=== PATIENT | female | born 1975 | race Caucasian/White ===

== ENCOUNTER 2024-12-16 08:50 | Emergency (ER) | payer BC ==
[~2024-12-16] VITALS: Ht 160 cm; Wt 53.5 kg
[2024-12-16 09:06] VITALS: BP 135/85; PULSE 82; RESP 16; O2SAT 100
--- NOTE | 2024-12-16 09:42 | Physician Documentation ---
History of Present Illness ~ Chief Complaint: Eye Pain Stated Complaint: EYE INFECTION Time Seen by MD: 09:40 HPI 49-year-old female, history of rheumatoid disease on immunocompromising medication, who presents with a left eyelid redness and swelling She tells me that she was wearing eye makeup 3 days ago and her upper eyelid appeared irritated. She woke up with a red swollen lump on her left upper eyelid. She went to her primary clinic and was told that she probably had cellulitis, and was given erythromycin eye drops. She was told specifically that this was not a stye. She was told to follow up with her commercial cleaner. She called her commercial cleaner this morning who told her that if she had cellulitis she needed to go to the ER to have oral antibiotics. She denies any fevers. No redness or swelling around her eye. No change to her vision or to the appearance of her eye. No other acute concerns. Medication Reconciliation Allergies: Coded Allergies: No Known Allergies (Unverified , 12/16/24) Scheduled Amox Tr/Potassium Clavulanate (Augmentin 875-125 Tablet), 1 TAB PO Q12H Review of Systems Eyes: Reports: pain, redness Physical Exam Vital Signs: Temperature: 98.3, Source: Oral, Heart Rate: 82, Respiratory Rate: 16, BP: 135/85, Pulse Oximetry: 100, Weight: 53.500 Oxygen Flow Rate: 0 Physical Exam General: This is a pleasant and healthy appearing young woman, not in distress HEENT: Left eye: The patient has erythema to the left upper eyelid only, with a small round bump, consistent with a stye. Otherwise the conjunctiva is normal, pupil is normal, extraocular movements intact. There was no surrounding erythema or swelling to the eye to suggest cellulitis. Heart: Regular rate and rhythm, normal-appearing peripheral perfusion Lungs: normal work of breathing, normal oxygen saturation on room air Neuro: Alert and oriented Psychiatric: Calm and cooperative with exam Progress Results/Orders Results/Orders Vital Signs 12/16/24 12/16/24 09:06 10:24 Temp 98.3 98.3 Pulse 82 Resp 16 B/P (MAP) 135/85 Pulse Ox 100 O2 Flow Rate 0 Medical Decision Making Additional Comment The patient presents with swelling and redness to her left eyelid. This is consistent with a stye. There was no evidence of periorbital cellulitis, conju nctival injection or conjunctivitis, or other dangerous process. She was reassured, given home care instructions including warm compresses. She was given a prescription for Augmentin if she does develop worsening signs of infection including signs of cellulitis around the eye. Return precautions given. Departure Time of Disposition: 10:00 Disposition: 01 HOME / SELF CARE / HOMELESS Impression: Primary Impression: Hordeolum externum (stye) Condition: Stable Referrals: NO PRIMARY CARE PROVIDER (PCP) Prescriptions Amox Tr/Potassium Clavulanate (Augmentin 875-125 Tablet) 1 Each Tablet 1 TAB PO Q12H for 7 Days, #14 TAB Prov: DEBORA MCMANUS MD 12/16/24 Education Educated: Patient Educated regarding: diagnosis, treatment, need for follow up Signature Scribe Signature: [email or web address] Attestation: DEBORA Ocampo MD Dec 16, 2024 09:42
[2024-12-16] MEDS ORDERED: AMOX-117 PO (10:04)
[2024-12-16 10:24] VITALS: TEMP 98.3
== END 2024-12-16 10:26 | disposition home or self-care (01) ==
LOC: ER 08:51
DX: H00.014 Hordeolum externum left upper eyelid (principal); M06.9 Rheumatoid arthritis, unspecified
CPT/HCPCS: 99283